=== PATIENT | male | born 1955 | race Caucasian/White ===

== ENCOUNTER → 2018-10-08 08:09 | Outpatient (REF) | payer OTHER, SELFPAY ==
[2018-10-08 08:21] LABS: INR 2.2 (0.9-1.3); Prothrombin Time 26.4 SECONDS (10.1-12.7)
== END ==
LOC: LAB 08:09
PROVIDERS: Visit Provider Family Medicine
DX: Z79.01 Long term (current) use of anticoagulants (principal)
CPT/HCPCS: 85610

== ENCOUNTER → 2018-11-12 09:40 | Outpatient (CLI) | payer OTHER, SELFPAY ==
[2018-11-12 09:55] LABS: INR 2.4 (0.9-1.3); Prothrombin Time 27.9 SECONDS (10.1-12.7)
== END ==
PROVIDERS: Visit Provider Family Medicine
DX: Z79.01 Long term (current) use of anticoagulants (principal)
CPT/HCPCS: 85610

== ENCOUNTER → 2018-12-19 10:35 | Outpatient (CLI) | payer OTHER, SELFPAY ==
[2018-12-19 10:54] LABS: Prothrombin Time 35.4 SECONDS (10.1-12.7)
== END ==
PROVIDERS: Visit Provider Family Medicine
DX: Z79.01 Long term (current) use of anticoagulants (principal)
CPT/HCPCS: 85610

== ENCOUNTER → 2019-01-08 10:35 | Outpatient (CLI) | payer OTHER, SELFPAY ==
[2019-01-08 11:02] LABS: INR 2.8 (0.9-1.3); Prothrombin Time 32.6 SECONDS (10.1-12.7)
== END ==
PROVIDERS: Visit Provider Student in an Organized Health Care Education/Training Program
DX: Z79.01 Long term (current) use of anticoagulants (principal)
CPT/HCPCS: 85610

== ENCOUNTER → 2019-02-24 10:24 | Outpatient (CLI) | payer OTHER, SELFPAY ==
[2019-02-24 11:34] LABS: INR 2.2 (0.9-1.3); Prothrombin Time 25.7 SECONDS (10.1-12.7)
== END ==
PROVIDERS: Visit Provider Student in an Organized Health Care Education/Training Program
DX: Z79.01 Long term (current) use of anticoagulants (principal)
CPT/HCPCS: 85610

== ENCOUNTER → 2019-06-12 08:44 | Outpatient (CLI) | payer OTHER, SELFPAY ==
[2019-06-12 08:51] LABS: Prothrombin Time 34.7 SECONDS (10.1-12.7)
== END ==
PROVIDERS: Visit Provider Student in an Organized Health Care Education/Training Program
DX: Z79.01 Long term (current) use of anticoagulants (principal)
CPT/HCPCS: 85610

== ENCOUNTER → 2019-08-04 11:12 | Outpatient (CLI) | payer OTHER, SELFPAY ==
[2019-08-04 11:21] LABS: INR 2.3 (0.9-1.3); Prothrombin Time 26.1 SECONDS (10.1-12.7)
== END ==
PROVIDERS: Visit Provider Student in an Organized Health Care Education/Training Program
DX: Z95.2 Presence of prosthetic heart valve (principal)
CPT/HCPCS: 85610

== ENCOUNTER → 2019-08-22 08:59 | Outpatient (ROUT) | payer OTHER, SELFPAY ==
[2019-08-22 09:13] LABS: INR 3.1 (0.9-1.3); Prothrombin Time 34.9 SECONDS (10.1-12.7)
== END ==
PROVIDERS: Visit Provider Student in an Organized Health Care Education/Training Program
DX: Z79.01 Long term (current) use of anticoagulants (principal)
CPT/HCPCS: 85610

== ENCOUNTER → 2019-11-20 09:59 | Outpatient (CLI) | payer OTHER, SELFPAY ==
--- NOTE | 2019-11-20 | DI.RAD.S_ITS ---
PROCEDURE: XR ABDOMEN MIN 2V INDICATIONS: Puncture Wound Lower Abd 2 MONTHS AGO TECHNIQUE: 2 views of the abdomen were acquired. COMPARISON: None. FINDINGS: Surgical changes and devices: None. Bowel: No pneumoperitoneum. The bowel gas pattern is normal except for mild to moderate colonic obstipation. Soft tissues: No masses; visualized solid organ contours appear normal in size. No suspicious abdominal calcifications. Bones: No suspicious bony abnormalities. IMPRESSION: Mild to moderate colonic obstipation, no intestinal obstruction or perforation seen. Please note that for penetrating wound CT scanning with contrast likely is warranted rather than plain film assessment especially given large body habitus and reduced quality of visualization. Dictated by: Roberth Malloy M.D. on 11/20/2019 at 11:22 Approved by: Roberth Malloy M.D. on 11/20/2019 at 11:24
== END ==
PROVIDERS: PCP Student in an Organized Health Care Education/Training Program; Referring Provider Student in an Organized Health Care Education/Training Program; Visit Provider Student in an Organized Health Care Education/Training Program
DX: S31.149A Puncture wound of abdominal wall with foreign body, unspecified quadrant without penetration into peritoneal cavity, initial encounter (principal); K59.00 Constipation, unspecified
CPT/HCPCS: 74018

== ENCOUNTER → 2020-02-09 11:00 | Outpatient (ROUT) | payer MEDICARE, SELFPAY ==
[2020-02-09 11:09] LABS: INR 3.7 (0.9-1.3); Prothrombin Time 42.3 SECONDS (10.1-12.7)
== END ==
PROVIDERS: PCP Student in an Organized Health Care Education/Training Program; Visit Provider Student in an Organized Health Care Education/Training Program
DX: Z79.01 Long term (current) use of anticoagulants (principal)
CPT/HCPCS: 85610

== ENCOUNTER → 2020-08-31 11:26 | Outpatient (ROUT) | payer MEDICARE, SELFPAY ==
[2020-08-31 12:17] LABS: INR 1.9 (0.9-1.3); Prothrombin Time 21.4 SECONDS (10.1-12.7)
== END ==
PROVIDERS: PCP Student in an Organized Health Care Education/Training Program; Visit Provider Student in an Organized Health Care Education/Training Program
DX: Z95.2 Presence of prosthetic heart valve (principal); Z79.01 Long term (current) use of anticoagulants
CPT/HCPCS: 85610

== ENCOUNTER → 2021-02-23 12:28 | Outpatient (ROUT) | payer MEDICARE, OTHER, SELFPAY ==
[2021-02-23 12:37] LABS: INR 3.3 (0.9-1.3); Prothrombin Time 37.9 SECONDS (10.1-12.7)
== END ==
PROVIDERS: PCP Student in an Organized Health Care Education/Training Program; Visit Provider Student in an Organized Health Care Education/Training Program
DX: Z95.2 Presence of prosthetic heart valve (principal); Z79.01 Long term (current) use of anticoagulants
CPT/HCPCS: 85610

== ENCOUNTER → 2021-05-30 09:54 | Outpatient (ROUT) | payer MEDICARE, OTHER, SELFPAY ==
[2021-05-30 10:24] LABS: INR 1.9 (0.9-1.3); Prothrombin Time 21.8 SECONDS (10.1-12.7)
== END ==
PROVIDERS: PCP Student in an Organized Health Care Education/Training Program; Visit Provider Student in an Organized Health Care Education/Training Program
DX: Z79.01 Long term (current) use of anticoagulants (principal)
CPT/HCPCS: 85610

== ENCOUNTER → 2021-09-16 10:11 | Outpatient (ROUT) | payer MEDICARE, OTHER, SELFPAY ==
[2021-09-16 10:26] LABS: INR 3.1 (0.9-1.3); Prothrombin Time 36.7 SECONDS (10.1-12.7)
== END ==
PROVIDERS: PCP Student in an Organized Health Care Education/Training Program; Visit Provider Student in an Organized Health Care Education/Training Program
DX: Z79.01 Long term (current) use of anticoagulants (principal)
CPT/HCPCS: 85610

== ENCOUNTER → 2021-12-22 13:03 | Outpatient (ROUT) | payer MEDICARE, OTHER, SELFPAY ==
[2021-12-22 13:48] LABS: INR 1.9 (0.9-1.3); Prothrombin Time 21.3 SECONDS (10.1-12.7)
== END ==
PROVIDERS: PCP Student in an Organized Health Care Education/Training Program; Visit Provider Family Medicine
DX: Z79.01 Long term (current) use of anticoagulants (principal)
CPT/HCPCS: 85610

== ENCOUNTER → 2023-06-13 12:45 | Outpatient (ROUT) | payer MEDICARE, OTHER, SELFPAY ==
[2023-06-13 12:54] LABS: INR 3.9 (0.9-1.3); Prothrombin Time 45.3 SECONDS (9.4-12.5)
== END ==
PROVIDERS: PCP Student in an Organized Health Care Education/Training Program; Visit Provider Family Medicine
DX: Z79.01 Long term (current) use of anticoagulants (principal); Z95.2 Presence of prosthetic heart valve
CPT/HCPCS: 85610

== ENCOUNTER → 2024-06-12 10:19 | Outpatient (ROUT) | payer MEDICARE, OTHER, SELFPAY ==
[2024-06-12 10:32] LABS: Prothrombin Time 33.6 SECONDS (9.4-12.5)
== END ==
PROVIDERS: PCP Student in an Organized Health Care Education/Training Program; Visit Provider Family Medicine
DX: Z79.01 Long term (current) use of anticoagulants (principal); Z95.2 Presence of prosthetic heart valve
CPT/HCPCS: 85610

== ENCOUNTER → 2024-07-21 07:40 | Outpatient (CLI) | payer MEDICARE, OTHER, SELFPAY ==
--- NOTE | 2024-07-21 | DI.ECHO.S_ITS ---
[facility]---------+ [facility] : : [id number] : [place] : : [id number] : : Phone: [phone] Echocardiogram Report + + :Name: AICHA THAKKAR Study Date: 07/21/2024 Height: 68 in : :Hospital ReadingLocation: Weight: 347 lb : : Gender: Male BSA: 2.6 m2 : :: 1955 Age: 68 yrs BP: 174/75 mmHg: :Reason For Study: PROSTHETIC HEART VALVE, HYPERTENSION : :Ordering Physician: EDUIN, : :MILVIA Warren Performed By: Chaparro Vega : :Referring: MILVIA DENNY : + + Interpretation Summary Technically difficult study due to morbid obesity. 1) Mildly increased left ventricular thickness (concentric) with normal size and mildly reduced systolic function (EF 45-50%). 2) Grossly, mildly enlarged right ventricle with mildly reduced function. 3) There is a mechanical aortic valve that is well seated and opens wel (mean gradient 12mmHg). No aortic regurgitation is present. 4) Hypertension present during the study (BP 174/75mmHg). 5) Compared to the echo done 12/17/2019, LVEF has decreased from 50-55% to 45- 50% on this study. Procedure: A two-dimensional transthoracic echocardiogram with color flow and Doppler was performed. A contrast injection of Definity was performed to improve assessment of LV function. The study quality was technically difficult. Comparison is made with the echocardiogram of 12/17/2019. The patient was in normal sinus rhythm during the exam. Left Ventricle: The left ventricle is normal in size. Left ventricular wall thickness is mildly increased. The ejection fraction is estimated to be 45- 50%. There is mild global hypokinesis of the left ventricle. Diastolic parameters suggest probable normal left ventricular diastolic function and normal filling pressures. Right Ventricle: The right ventricle is not well visualized. Grossly, mildly enlarged right ventricle with mildly reduced function. Atria: The left atrium is mildly dilated. Right atrium not well visualized. The interatrial septum is not well visualized. Mitral Valve: There is mild mitral annular calcification. The mitral valve leaflets are mildly calcified. There is trace mitral regurgitation. Aortic Valve: There is a mechanical aortic valve. The peak aortic velocity is 2.3 m/sec. The aortic valve mean gradient is 12.2 mmHg. No aortic regurgitation is present. Tricuspid Valve: The tricuspid valve is not well visualized. No tricuspid regurgitation. Pulmonic Valve: The pulmonic valve is not well visualized. There is no pulmonic valvular regurgitation. Great Vessels: The aortic root is not well visualized but is probably normal size. The dimensions of the ascending aorta are normal. The pulmonary artery is normal size. The inferior vena cava was not visualized. Pericardium/ Pleura There is no pericardial effusion. MMode/2D Measurements & Calculations LVIDd: 4.8 cm LVOT diam: 2.0 cm LVIDs: 3.2 cm asc Aorta Diam: 3.4 cm FS: 34.0 % EPSS: 1.4 cm IVSd: 1.3 cm LVPWd: 1.3 cm LV guevara. diameter/BSA (cm/m^2): 1.9 LV sys. diameter/BSA (cm/m^2): 1.2 LA A2 area: 24.1 cm2 LA A4 area: 26.6 cm2 LA length (vol): 6.5 cm LA vol: 84.0 ml LA vol index: 32.5 ml/m2 Doppler Measurements & Calculations Ao V2 max: 228.8 cm/sec LVOT Max Varun: 108.1 cm/sec Ao V2 mean: 163.7 cm/sec LV V1 max P.7 mmHg Ao max P.9 mmHg LV V1 VTI: 27.4 cm Ao mean P.2 mmHg SHILPI(I,D): 1.7 cm2 Ao V2 VTI: 51.1 cm SHILPI(V,D): 1.5 cm2 sev ratio: 0.54 SHILPI indexed to BSA (cm^2/m^2): 0.64 MV E max varun: 117.7 cm/sec PA V2 max: 101.7 cm/sec MV A max varun: 106.0 cm/sec PA V2 mean: 69.4 cm/sec MV E/A: 1.1 PA mean P.1 mmHg Med Peak E' Varun: 4.5 cm/sec PA pr(Accel): 60.2 mmHg E/E' med: 26.2 Lat Peak E' Varun: 8.7 cm/sec E/E' lat: 13.5 E/e' average: 19.9 MV dec time: 0.22 sec SV(LVOT): 84.9 ml Reading Physician:12:24 PM
== END ==
PROVIDERS: PCP Family Medicine; Referring Provider Family Medicine; Visit Provider Family Medicine
DX: I34.81 Nonrheumatic mitral (valve) annulus calcification (principal); Z95.2 Presence of prosthetic heart valve; E11.59 Type 2 diabetes mellitus with other circulatory complications; Z79.01 Long term (current) use of anticoagulants
CPT/HCPCS: C8929; Q9957

== ENCOUNTER → 2024-09-11 10:33 | Outpatient (ROUT) | payer MEDICARE, OTHER, SELFPAY ==
[2024-09-11 10:53] LABS: INR 2.6 (0.9-1.3); Prothrombin Time 29.1 SECONDS (9.4-12.5)
== END ==
LOC: LAB 10:33
PROVIDERS: PCP Family Medicine; Visit Provider Family Medicine
DX: Z95.2 Presence of prosthetic heart valve (principal); Z79.01 Long term (current) use of anticoagulants
CPT/HCPCS: 85610

== ENCOUNTER → 2025-03-16 10:51 | Outpatient (ROUT) | payer MEDICARE, OTHER, SELFPAY ==
[2025-03-16 11:03] LABS: INR 2.6 (0.9-1.3); Prothrombin Time 29.1 SECONDS (9.4-12.5)
== END ==
PROVIDERS: PCP Family Medicine; Visit Provider Family Medicine
DX: Z95.2 Presence of prosthetic heart valve (principal); Z79.01 Long term (current) use of anticoagulants
CPT/HCPCS: 85610

== ENCOUNTER → 2025-03-30 11:34 | Outpatient (CLI) | payer MEDICARE, OTHER, SELFPAY ==
--- NOTE | 2025-03-30 | DI.US.S_ITS ---
PROCEDURE: US SOFT TISSUE HEAD AND NECK INDICATIONS: mass right lower neck TECHNIQUE: Real-time scanning was performed of the neck region of interest, with image documentation. COMPARISON: None. FINDINGS/IMPRESSION: Targeted ultrasound of the right lower neck demonstrates no sonographic abnormality. Dictated by: Ranjan Cameron M.D. on 03/30/2025 at 15:15 Approved by: Ranjan Cameron M.D. on 03/30/2025 at 15:15
== END ==
LOC: US 11:35
PROVIDERS: PCP Family Medicine; Referring Provider Family Medicine; Visit Provider Family Medicine
DX: M79.89 Other specified soft tissue disorders (principal)
CPT/HCPCS: 76536

== ENCOUNTER → 2025-06-26 12:09 | Outpatient (ROUT) | payer MEDICARE, OTHER, SELFPAY ==
[2025-06-26 12:15] LABS: INR 1.7 (0.9-1.3); Prothrombin Time 19.0 SECONDS (9.4-12.5)
== END ==
PROVIDERS: PCP Family Medicine; Visit Provider Family Medicine
DX: Z79.01 Long term (current) use of anticoagulants (principal); Z95.2 Presence of prosthetic heart valve
CPT/HCPCS: 85610